=== PATIENT | male | born 1940 | race Caucasian/White ===

== ENCOUNTER 2024-02-05 12:26 | Inpatient (IN) | payer MEDICARE, MEDICAID ==
[~2024-02-05] VITALS: Ht 172.7 cm; Wt 83.3 kg
[2024-02-05 13:44] LABS: BASOPHILS % (AUTO) 0.6 % (0.0-2.0); EOSINOPHILS % (AUTO) 0.9 % (1.0-6.0); HEMATOCRIT 41.8 % (41-53); HEMOGLOBIN 13.9 g/dL (13.5-17.5); LYMPHOCYTES # (AUTO) 1.3 K/uL (1.0-4.8); LYMPHOCYTES % (AUTO) 16.6 % (22.0-44.0); MEAN CORPUSCULAR HEMOGLOBIN 31.6 pg (26.0-34.0); MEAN CORPUSCULAR HGB CONC 33.3 G/dL (31.0-37.0); MEAN CORPUSCULAR VOLUME 95 fL (80-100); MONOCYTES # (AUTO) 0.6 K/uL (0.1-1.0); MONOCYTES % (AUTO) 8.3 % (2.0-9.0); NEUTROPHILS # (AUTO) 5.7 K/uL (1.8-7.7); NEUTROPHILS % (AUTO) 73.6 % (40.0-70.0); PLATELET COUNT (AUTO) 332 K/uL (150-450); RED CELL DISTRIBUTION WIDTH 14.1 % (11.5-14.5); WHITE BLOOD COUNT (AUTO) 7.7 K/uL (4.5-11.0)
[2024-02-05 13:59] LABS: ANION GAP 8 mmol/L (8-16); CALCIUM, TOTAL 8.7 mg/dL (8.8-10.5); CARBON DIOXIDE 26 mmol/L (22-29); CHLORIDE 103 mmol/L (98-107); CREATININE 1.32 mg/dL (0.60-1.30); GLOMERULAR FILTR. RATE CALC 52 mL/min (>60); GLUCOSE,RANDOM 100 mg/dL (70-110); POTASSIUM 4.7 mmol/L (3.5-5.1); SODIUM SERUM 137 mmol/L (136-145); UREA NITROGEN, BLOOD 37 mg/dL (7-18)
[2024-02-05 14:06] LABS: ALCOHOL, BLOOD (SERUM) < 3 mg/dL (0-10); TROPONIN I-HIGH SENSITIVITY 7 ng/L (<76)
[2024-02-05 15:59] LABS: COVID AG,FIA SOURCE NASAL SWAB
[2024-02-05 16:05] LABS: APPEARANCE,URINE CLEAR (CLEAR); BILIRUBIN,URINE NEGATIVE (NEGATIVE); COLOR,URINE YELLOW (YELLOW); GLUCOSE, URINE (UA) NEGATIVE (NEGATIVE); KETONES,URINE NEGATIVE (NEGATIVE); LEUKOCYTE ESTERASE ,URINE SMALL (NEGATIVE); NITRATE,URINE NEGATIVE (NEGATIVE); OCCULT BLOOD,URINE NEGATIVE (NEGATIVE); PROTEIN,URINE NEGATIVE (NEGATIVE); SPECIFIC GRAVITIY, URINE 1.022 (1.003-1.030); UROBILINOGEN,URINE <=1.0 mg/dL (<=1.0)
[2024-02-05 16:20] LABS: SARS-COV2 (COVID) ANTIGEN,FIA Negative (Negative)
[2024-02-05 16:23] LABS: BACTERIA,URINE Few /HPF (None Seen); RBC,URINE 0-2 /HPF (0-2); SQUAMOUS EPITHELIAL CELL,UR Few /LPF (None Seen)
[2024-02-05 16:29] LABS: ALCOHOL, URINE DRUG SCREEN NEGATIVE (NEGATIVE); AMPHET/METH SCREEN,URINE NEGATIVE (NEGATIVE); BARBITURATE SCREEN, URINE NEGATIVE (NEGATIVE); BENZODIAZEPINES SCREEN,URINE NEGATIVE (NEGATIVE); CANNABINOID SCREEN,URINE NEGATIVE (NEGATIVE); COCAINE SCREEN,URINE NEGATIVE (NEGATIVE); METHADONE SCREEN, URINE NEGATIVE (NEGATIVE); OPIATE SCREEN,URINE NEGATIVE (NEGATIVE); PHENCYCLIDINE SCREEN,URINE NEGATIVE (NEGATIVE)
[2024-02-05] MEDS: HALOPERIDOL LACTATE 5 MG/ML VIAL IM ONE (17:20)
[2024-02-05] MEDS: DiphenhydrAMINE HCL 50 MG/ML VIAL IM ONE (17:20)
[2024-02-05] MEDS: LORazepam 2 MG/ML VIAL IM ONE (17:20)
[2024-02-05] MEDS ORDERED: HALOPERIDOL 5 MG TABLET PO PRN (17:45)
[2024-02-05] MEDS ORDERED: MAGNESIUM HYDROXIDE SUSPENSION 30 ML UDCUP PO PRN (17:45)
[2024-02-05] MEDS ORDERED: MAG HYDROX/ALUMINUM HYD/SIMETH ES 30 ML SUSPENSION UDCUP PO PRN (17:45)
[2024-02-05] MEDS ORDERED: ZOLPIDEM TARTRATE 10 MG TABLET PO PRN (17:45)
[2024-02-05] MEDS ORDERED: LOPERAMIDE HCL 2 MG CAPSULE PO PRN (17:45)
[2024-02-05] MEDS ORDERED: ACETAMINOPHEN 325 MG TABLET PO PRN (17:45)
[2024-02-06 10:30] VITALS: BP 103/68; PULSE 76; RESP 18; TEMP 97.6; O2SAT 98
[2024-02-06 11:07] VITALS: BP 103/68; PULSE 76; RESP 18; TEMP 96.3; O2SAT 95
[2024-02-06] MEDS ORDERED: ESCI20TA37 PO (12:02)
[2024-02-06] MEDS ORDERED: MEMA5TAB16 PO (12:06)
[2024-02-06] MEDS ORDERED: TAMS0.4C94 PO (12:06)
[2024-02-06] MEDS ORDERED: METO25 PO (12:06)
[2024-02-06] MEDS ORDERED: NICOTINE 14 MG/24 HOUR PATCH TD PRN (12:15)
[2024-02-06] MEDS ORDERED: DOCUSATE SODIUM 100 MG CAPSULE PO PRN (12:15)
[2024-02-06] MEDS ORDERED: ACETAMINOPHEN 325 MG TABLET PO PRN (12:15)
[2024-02-06] MEDS ORDERED: CloNIDine HCL 0.1 MG TABLET PO PRN (12:15)
[2024-02-06] MEDS ORDERED: ONDANSETRON 4 MG TABLET PO PRN (12:15)
[2024-02-06] MEDS ORDERED: MAGNESIUM HYDROXIDE SUSPENSION 30 ML UDCUP PO PRN (12:15)
[2024-02-06] MEDS ORDERED: MAG HYDROX/ALUMINUM HYD/SIMETH ES 30 ML SUSPENSION UDCUP PO PRN (12:15)
[2024-02-06] MEDS ORDERED: PETROLATUM,WHITE 28 GM JELLY TP PRN (12:15)
[2024-02-06] MEDS ORDERED: LOPERAMIDE HCL 2 MG CAPSULE PO PRN (12:15)
[2024-02-06] MEDS ORDERED: GuaiFENesin/D-METHORPHAN [SUGAR-FREE] 200-20MG/10 ML SYRUP UDCUP PO PRN (12:15)
[2024-02-06] MEDS ORDERED: ALBUTEROL SULFATE HFA 90 MCG/PUFF 8 GM INHALER IH PRN (12:15)
[2024-02-06] MEDS: TAMSULOSIN HCL 0.4 MG CAPSULE PO ONE (13:15)
[2024-02-06] MEDS ORDERED: INFLUENZA VIRUS VACCINE TVS (6MO+) 2024-25/PF 45 MCG/0.5 ML SYRINGE IM. ONE (14:15)
[2024-02-06] MEDS ORDERED: PNEUMOCOCCAL VACCINE POLYVALENT 0.5 ML SYRINGE [PPSV23] IM. ONE (15:15)
[2024-02-06] MEDS: MEMANTINE HCL 5 MG TABLET PO SCH (17:00)
[2024-02-06] MEDS ORDERED: METOPROLOL TARTRATE 25 MG TABLET PO SCH (17:00)
[2024-02-06] MEDS ORDERED: MEMANTINE HCL 5 MG TABLET PO SCH (17:00)
[2024-02-06] MEDS: METOPROLOL TARTRATE 25 MG TABLET PO SCH (17:00)
[2024-02-06] MEDS ORDERED: MELATONIN 5 MG TABLET PO SCH (21:00)
[2024-02-06 21:40] VITALS: BP 127/88; PULSE 64; RESP 18; TEMP 98.1; O2SAT 93
[2024-02-06] MEDS: MELATONIN 5 MG TABLET PO SCH (21:56)
[2024-02-06 22:00] VITALS: PULSE 64; RESP 16; O2SAT 94
[2024-02-07 07:53] LABS: HEMOGLOBIN A1C 5.3 % (3.8-5.6)
[2024-02-07 08:13] VITALS: BP 109/65; PULSE 63; RESP 18; TEMP 97.3; O2SAT 96
[2024-02-07 08:20] LABS: THYROID STIMULATING HORMONE 1.93 uIU/mL (0.36-3.74)
[2024-02-07 09:16] VITALS: BP_SYST 103; BP_DIAS 6; BP_DIAS 65; PULSE 65; RESP 18; TEMP 97.1; O2SAT 96
[2024-02-07] MEDS: ESCITALOPRAM OXALATE 20 MG TABLET PO SCH (10:33)
[2024-02-07] MEDS: TAMSULOSIN HCL 0.4 MG CAPSULE PO SCH (10:33)
[2024-02-07 20:30] VITALS: BP 105/65; PULSE 6; PULSE 63; RESP 18; TEMP 98; O2SAT 98
[2024-02-07 20:32] VITALS: BP 105/65; PULSE 63; RESP 18; TEMP 98; O2SAT 98
[2024-02-08 09:01] VITALS: BP_SYST 106; BP_DIAS 62; BP_DIAS 67; PULSE 68; RESP 18; TEMP 97.5; O2SAT 98
[2024-02-08 09:07] VITALS: BP 106/67; PULSE 68; RESP 18; TEMP 97.5; O2SAT 98
[2024-02-08 16:00] VITALS: BP 120/67; RESP 18
[2024-02-08] MEDS: LORazepam 2 MG TABLET PO PRN (17:06)
[2024-02-08 21:23] VITALS: BP 119/68; PULSE 67; RESP 18; TEMP 97.6; O2SAT 97
[2024-02-08 21:25] VITALS: BP 119/68; PULSE 67; RESP 18; TEMP 97.6; O2SAT 97
[2024-02-09 09:27] VITALS: BP 144/89; PULSE 64; RESP 18; TEMP 97; O2SAT 95
[2024-02-09 10:38] VITALS: BP 144/81; PULSE 78; RESP 18; TEMP 97; O2SAT 97
[2024-02-09 21:31] VITALS: BP 150/73; PULSE 68; RESP 18; TEMP 96.6; O2SAT 99
[2024-02-09 21:33] VITALS: BP 150/73; PULSE 68; RESP 18; TEMP 96.6; O2SAT 99
[2024-02-10 08:44] VITALS: BP 110/69; PULSE 57; RESP 16; TEMP 97.1; O2SAT 96
[2024-02-10 09:23] VITALS: BP 101/69; PULSE 69; RESP 18; TEMP 97.1; O2SAT 96
[2024-02-10] MEDS ORDERED: MELA5TAB40 PO (12:51)
== END 2024-02-10 19:12 | DRG 884 ==
LOC: EMS 12:26 → 3EI 02-06 10:56 → 3EX 02-06 12:46
PROVIDERS: ADMIT Psychiatry & Neurology Psychiatry; ATTEND Psychiatry & Neurology Psychiatry
PROC: 5A09357 Assistance with Respiratory Ventilation, Less than 24 Consecutive Hours, Continuous Positive Airway Pressure (ICD-10-PCS; principal; 2024-02-06)
PROC: GZHZZZZ Group Psychotherapy (ICD-10-PCS; 2024-02-06)
PROC: GZ52ZZZ Individual Psychotherapy, Cognitive (ICD-10-PCS; 2024-02-06)
DX: F03.918 Unspecified dementia, unspecified severity, with other behavioral disturbance (principal); N18.30 Chronic kidney disease, stage 3 unspecified; F32.1 Major depressive disorder, single episode, moderate; Z20.822 Contact with and (suspected) exposure to COVID-19; J44.9 Chronic obstructive pulmonary disease, unspecified; I12.9 Hypertensive chronic kidney disease with stage 1 through stage 4 chronic kidney disease, or unspecified chronic kidney disease; F03.93 Unspecified dementia, unspecified severity, with mood disturbance; N40.0 Benign prostatic hyperplasia without lower urinary tract symptoms; G47.00 Insomnia, unspecified; Z95.0 Presence of cardiac pacemaker; Z79.899 Other long term (current) drug therapy; F29 Unspecified psychosis not due to a substance or known physiological condition
CPT/HCPCS: 80048; 80061; 80307; 81001; 83036; 84443; 84484; 85025; 87077; 87086; 87186; 94660; 99285; G0378; G0480; J1200; J1630; J2060